=== PATIENT | female | born 1935 | race Caucasian/White ===

== ENCOUNTER 2017-01-12 14:48 | Day surgery (SDC) | payer MEDICARE, OTHER ==
[~2017-01-12] VITALS: Ht 157.5 cm; Wt 51.2 kg
[2017-01-12 15:46] VITALS: Ht 157.5 cm; Wt 51.2 kg
[2017-01-12] MEDS ORDERED: PRAV10TA43 PO (15:52)
[2017-01-12] MEDS ORDERED: OMEP40CA6 PO (15:52)
[2017-01-12] MEDS ORDERED: METF-480 PO (15:52)
[2017-01-12] MEDS ORDERED: LOSA50TA6 PO (15:52)
[2017-01-12] MEDS ORDERED: AMLO-147 PO (15:52)
[2017-01-12] MEDS ORDERED: NOVO3I SC (15:52)
[2017-01-12] MEDS ORDERED: LEVO125T75 PO (15:52)
[2017-01-12] MEDS ORDERED: PROPOFOL 20 ML ONE (15:55)
[2017-01-12] MEDS ORDERED: MIDAZOLAM 1 MG/ML 2 ML INJ ONE (15:55)
[2017-01-12] MEDS ORDERED: LIDOCAINE 2% (SDV) 5 ML INJ ONE (15:55)
[2017-01-12 16:10] VITALS: BP 189/83; PULSE 71; RESP 20
[2017-01-12 17:20] VITALS: BP 162/69; RESP 20
--- NOTE | 2017-01-13 03:14 | GILP ---
DATE OF PROCEDURE: NAME OF PROCEDURES: 1. Esophagogastroduodenoscopy and biopsy. 2. Colonoscopy and biopsy. SURGEON: Jennifer Mendoza MD PREOPERATIVE DIAGNOSES: 1. Abdominal pain. 2. Change in the bowel habit. 3. History of colon polyps. 4. Weight loss. POSTOPERATIVE DIAGNOSES 1. Reflux esophagitis with erosions. 2. Bile reflux gastritis with erosions. 3. Gastric mucosal biopsies were taken for Helicobacter pylori test. 4. Colonoscopy all the way to the cecum. 5. Small right colon polyp was removed using the biopsy forceps. 6. Internal hemorrhoids. INDICATION FOR THE PROCEDURE: Ms. Ekta Varela is a 81-year-old female patient who had upper abdomi nal pain associated with the loss of appetite and weight loss. The patient also had change in the b owel habit. She had history of colon polyps. The patient was scheduled for endoscopy and colonosco py for further evaluation. The procedures and possible complications are well explained to the patient and the family and conse nt was obtained. DESCRIPTION OF PROCEDURE: Under the influence of anesthesia, the gastroscope was carefully introduc ed into the esophagus and under direct vision it was advanced to the stomach and through the pylorus into the duodenal bulb and descending duodenum. FINDINGS: ESOPHAGUS: The patient had reflux esophagitis and erosions. STOMACH: She had bile reflux gastritis and erosions. Gastric mucosal biopsies were taken for H. py vasyl test. DUODENUM: Normal. The patient had pyloroplasty. The colonoscope was carefully introduced in the rectum and under direct vision it was advanced all t he way to the cecum. FINDINGS: The patient had a small right colon polyp and it was removed using the biopsy forceps. S he was noted to have internal hemorrhoids. She tolerated the procedures very well and there was no complication from the procedures. At the en d of the procedures, she was awake with stable vital signs and she was discharged home to the care o f her family. IMPRESSION: 1. Reflux esophagitis with erosions. 2. Status post pyloroplasty. 3. Bile reflux gastritis with erosions. 4. Gastric mucosal biopsies were taken for Helicobacter pylori test. 5. Colonoscopy all the way to the cecum. 6. Small right colon polyp was removed using the biopsy forceps. 7. Internal hemorrhoids. PLAN: 1. Continue omeprazole. 2. Add Carafate 1 g p.o. t.i.d. a.c. 3. Await histopathology reports. 4. Because of the patient's age, the patient will not need another screening colonoscopy. Dictated By: JENNIFER ZAVALA/TONY Conf#: [id number] DID#: [id number]
== END 2017-01-12 18:14 | disposition home or self-care (01) ==
LOC: GIL 14:48
PROVIDERS: ATTEND Internal Medicine Gastroenterology
DX: R19.4 Change in bowel habit (principal); K21.0 Gastro-esophageal reflux disease with esophagitis; K29.60 Other gastritis without bleeding; K63.5 Polyp of colon; K64.8 Other hemorrhoids; I10 Essential (primary) hypertension; E11.9 Type 2 diabetes mellitus without complications; E03.9 Hypothyroidism, unspecified; E78.5 Hyperlipidemia, unspecified
CPT/HCPCS: 43239; 45380; 82962; 87081; 88305; J2250